=== PATIENT | female | born 1990 | race Caucasian/White ===

== ENCOUNTER 2017-07-21 22:26 | Outpatient (CLI) | payer OTHER | END 2017-07-22 00:30 | disposition home or self-care (01) | LOC: OBT 22:26 → L-D 22:28 | DX: O9A.212 Injury, poisoning and certain other consequences of external causes complicating pregnancy, second trimester (principal); Z3A.24 24 weeks gestation of pregnancy; V43.52XA Car driver injured in collision with other type car in traffic accident, initial encounter; Y92.410 Unspecified street and highway as the place of occurrence of the external cause | CPT/HCPCS: Z7500 ==

== ENCOUNTER 2017-08-31 21:34 | Inpatient (IN) | payer OTHER ==
[2017-08-31] MEDS: LACTATED RINGER'S 1,000 ML IV (23:21)
[2017-08-31] MEDS: TERBUTALINE 1 MG/ML INJ SC (23:25)
[2017-08-31 23:34] LABS: ADD MAN DIFF? NO
[2017-08-31 23:37] LABS: BASOPHILS % 0.2 % (0.0-2.0); EOSINOPHILS # 0.2 10^3/ul (0.0-0.5); HEMATOCRIT 33.9 % (37.0-47.0); HEMOGLOBIN 11.3 g/dl (12.0-16.0); LYMPHOCYTES # 2.5 10^3/ul (0.8-2.9); LYMPHOCYTES % 28.3 % (15.0-51.0); MEAN CORPUSCULAR HEMOGLOBIN 27.2 pg (29.0-33.0); MEAN CORPUSCULAR HGB CONC 33.3 g/dl (32.0-37.0); MEAN CORPUSCULAR VOLUME 81.5 fl (82.0-101.0); MEAN PLATELET VOLUME 10.2 fl (7.4-10.4); MONOCYTE # 0.6 10^3/ul (0.3-0.9); MONOCYTES % 6.8 % (0.0-11.0); NEUTROPHIL # 5.5 10^3/ul (1.6-7.5); NEUTROPHILS % 62.5 % (39.0-77.0); PLATELET COUNT 311 10^3/UL (140-415); RED BLOOD COUNT 4.16 10^6/ul (4.20-5.40); RED CELL DISTRIBUTION WIDTH 13.7 % (11.5-14.5)
[2017-08-31 23:37] LABS: WHITE BLOOD COUNT 8.9 10^3/ul (4.8-10.8)
[2017-08-31 23:56] LABS: ADD UMIC YES; UR ASCORBIC ACID NEGATIVE (NEGATIVE); UR BACTERIA FEW /HPF (NONE SEEN); UR BILIRUBIN (Dip) NEGATIVE (NEGATIVE); UR BLOOD (Dip) NEGATIVE (NEGATIVE); UR CLARITY SLIGHTLY CLOUDY (CLEAR); UR COLOR YELLOW (YELLOW); UR GLUCOSE (Dip) NEGATIVE (NEGATIVE); UR KETONES (Dip) NEGATIVE (NEGATIVE); UR LEUKOCYTE ESTERASE (Dip) TRACE Leu/ul (NEGATIVE); UR NITRITE (Dip) NEGATIVE (NEGATIVE); UR RBC 2 /HPF (0-5); UR SPECIFIC GRAVITY (Dip) 1.013 (1.003-1.030); UR SQUAMOUS EPITHELIAL CELL FEW /HPF (FEW); UR TOTAL PROTEIN (Dip) NEGATIVE (NEGATIVE); UR UROBILINOGEN (Dip) NEGATIVE (NEGATIVE); UR WBC 10 /HPF (0-5)
[2017-09-01 00:02] LABS: ALANINE AMINOTRANSFERASE 10 IU/L (13-69); ALBUMIN 3.7 g/dl (3.3-4.9); ALBUMIN/GLOBULIN RATIO 0.94; ALKALINE PHOSPHATASE 103 IU/L (42-121); ANION GAP 13 (8-16); ASPARTATE AMINO TRANSFERASE 12 IU/L (15-46); BLOOD UREA NITROGEN 6 mg/dl (7-20); CALCIUM 9.1 mg/dl (8.4-10.2); CARBON DIOXIDE 23 mmol/L (21-31); CHLORIDE 107 mmol/L (97-110); CREATININE 0.41 mg/dl (0.44-1.00); GLUCOSE 109 mg/dl (70-220); POTASSIUM 3.9 mmol/L (3.5-5.1); SODIUM 139 mmol/L (135-144); TOTAL PROTEIN 7.6 g/dl (6.1-8.1)
[2017-09-01] MEDS: LACTATED RINGER'S 1,000 ML IV ×2 (01:57→09:12)
[2017-09-01] MEDS: NIFEdipine 10 MG CAP PO ×3 (02:00→09:13)
[2017-09-01] MEDS: BETAMET NA PHOS/AC(6 MG/ML) 5ML INJ IM (02:01)
[2017-09-01] MEDS: PRENATAL VITAMIN PO (09:12)
== END 2017-09-01 13:45 | disposition home or self-care (01) | DRG 780 ==
LOC: OBT 21:34 → L-D 21:36
DX: O47.03 False labor before 37 completed weeks of gestation, third trimester (principal); Z3A.30 30 weeks gestation of pregnancy
CPT/HCPCS: 36415; 76817; 76818; 80053; 81001; 85025; 96360; 96372

== ENCOUNTER 2017-09-02 09:57 | Outpatient (CLI) | payer OTHER ==
[2017-09-02] MEDS: BETAMET NA PHOS/AC(6 MG/ML) 5ML INJ IM (10:22)
== END 2017-09-02 12:25 | disposition home or self-care (01) ==
LOC: OBT 09:57 → L-D 09:58 → OBT 12:25
DX: O62.9 Abnormality of forces of labor, unspecified (principal); Z3A.30 30 weeks gestation of pregnancy
CPT/HCPCS: 76817; 76818

== ENCOUNTER 2017-09-18 11:18 | Outpatient (CLI) | payer OTHER ==
[2017-09-18] MEDS: LACTATED RINGER'S 1,000 ML IV* (13:01)
[2017-09-18] MEDS: TERBUTALINE 1 MG/ML INJ SC (13:04)
== END 2017-09-18 15:30 | disposition home or self-care (01) ==
LOC: OBT 11:18 → L-D 11:18 → OBT 15:30
DX: O62.9 Abnormality of forces of labor, unspecified (principal); Z3A.32 32 weeks gestation of pregnancy
CPT/HCPCS: 36415; 76817; 76818; 96360; 96361; 96372

== ENCOUNTER 2017-09-28 13:39 | Outpatient (CLI) | payer OTHER | END 2017-09-28 16:00 | disposition home or self-care (01) | LOC: OBT 13:39 → L-D 13:40 → OBT 16:00 | DX: O28.0 Abnormal hematological finding on antenatal screening of mother (principal); Z3A.33 33 weeks gestation of pregnancy | CPT/HCPCS: 76817 ==

== ENCOUNTER 2017-10-07 11:58 | Outpatient (CLI) | payer OTHER ==
[2017-10-07 13:37] LABS: ADD MAN DIFF? NO
[2017-10-07 13:39] LABS: BASOPHILS % 0.2 % (0.0-2.0); EOSINOPHILS # 0.1 10^3/ul (0.0-0.5); EOSINOPHILS % 0.8 % (0.0-7.0); HEMATOCRIT 34.7 % (37.0-47.0); HEMOGLOBIN 11.6 g/dl (12.0-16.0); LYMPHOCYTES # 2.4 10^3/ul (0.8-2.9); LYMPHOCYTES % 26.6 % (15.0-51.0); MEAN CORPUSCULAR HEMOGLOBIN 27.8 pg (29.0-33.0); MEAN CORPUSCULAR HGB CONC 33.4 g/dl (32.0-37.0); MEAN PLATELET VOLUME 10.7 fl (7.4-10.4); MONOCYTE # 0.6 10^3/ul (0.3-0.9); MONOCYTES % 6.7 % (0.0-11.0); NEUTROPHIL # 5.8 10^3/ul (1.6-7.5); NEUTROPHILS % 65.4 % (39.0-77.0); PLATELET COUNT 272 10^3/UL (140-415); RED BLOOD COUNT 4.18 10^6/ul (4.20-5.40); RED CELL DISTRIBUTION WIDTH 14.6 % (11.5-14.5)
[2017-10-07 13:39] LABS: WHITE BLOOD COUNT 8.8 10^3/ul (4.8-10.8)
[2017-10-07 14:04] LABS: ALANINE AMINOTRANSFERASE 11 IU/L (13-69); ALBUMIN 3.1 g/dl (3.3-4.9); ALBUMIN/GLOBULIN RATIO 0.86; ALKALINE PHOSPHATASE 124 IU/L (42-121); ANION GAP 9 (8-16); ASPARTATE AMINO TRANSFERASE 10 IU/L (15-46); BILIRUBIN,INDIRECT 0.1 mg/dl (0-1.1); BILIRUBIN,TOTAL 0.1 mg/dl (0.2-1.3); BLOOD UREA NITROGEN 8 mg/dl (7-20); CALCIUM 8.8 mg/dl (8.4-10.2); CARBON DIOXIDE 23 mmol/L (21-31); CHLORIDE 109 mmol/L (97-110); CREATININE 0.47 mg/dl (0.44-1.00); GLUCOSE 83 mg/dl (70-220); POTASSIUM 4.1 mmol/L (3.5-5.1); SODIUM 137 mmol/L (135-144); TOTAL PROTEIN 6.7 g/dl (6.1-8.1)
== END 2017-10-07 13:20 | disposition home or self-care (01) ==
LOC: OBT 11:58 → L-D 11:58 → OBT 13:20
DX: O60.03 Preterm labor without delivery, third trimester (principal); Z3A.35 35 weeks gestation of pregnancy
CPT/HCPCS: 80053; 85025; 96372

== ENCOUNTER 2017-10-14 22:25 | Inpatient (IN) | payer OTHER ==
[2017-10-14] MEDS: TERBUTALINE 1 MG/ML INJ SC (23:37)
[2017-10-14] MEDS: LACTATED RINGER'S 1,000 ML IV (23:38)
[2017-10-15] MEDS: LACTATED RINGER'S 1,000 ML IV ×6 (00:52→23:43)
[2017-10-15] MEDS: TERBUTALINE 1 MG/ML INJ SC ×5 (00:52→13:37)
[2017-10-15] MEDS ORDERED: DOCUSATE SODIUM 100 MG CAP PO (02:30)
[2017-10-15] MEDS: NIFEdipine 10 MG CAP PO ×4 (02:30→12:18)
[2017-10-15 03:29] LABS: ADD MAN DIFF? NO
[2017-10-15 03:35] LABS: WHITE BLOOD COUNT 10.4 10^3/ul (4.8-10.8)
[2017-10-15 03:35] LABS: BASOPHILS % 0.2 % (0.0-2.0); EOSINOPHILS % 0.2 % (0.0-7.0); HEMATOCRIT 31.2 % (37.0-47.0); HEMOGLOBIN 10.4 g/dl (12.0-16.0); LYMPHOCYTES # 2.5 10^3/ul (0.8-2.9); LYMPHOCYTES % 23.7 % (15.0-51.0); MEAN CORPUSCULAR HGB CONC 33.3 g/dl (32.0-37.0); MEAN CORPUSCULAR VOLUME 83.9 fl (82.0-101.0); MEAN PLATELET VOLUME 10.9 fl (7.4-10.4); MONOCYTE # 0.8 10^3/ul (0.3-0.9); MONOCYTES % 7.3 % (0.0-11.0); NEUTROPHIL # 7.1 10^3/ul (1.6-7.5); NEUTROPHILS % 68.3 % (39.0-77.0); PLATELET COUNT 242 10^3/UL (140-415); RED BLOOD COUNT 3.72 10^6/ul (4.20-5.40)
[2017-10-15 04:27] LABS: INR 1.04; PROTIME 13.7 Sec (11.9-14.9); PT RATIO 1.1
[2017-10-15 04:28] LABS: PARTIAL THROMBOPLASTIN TIME 28.6 Sec (25.0-35.0)
[2017-10-15 04:30] LABS: HEPATITIS B SURFACE ANTIGEN NEGATIVE (NEGATIVE)
[2017-10-15] MEDS ORDERED: PRENATAL VITAMIN PO (09:00)
[2017-10-15] MEDS ORDERED: FERROUS SULFATE (EC) 325 MG TAB PO (09:00)
[2017-10-15] MEDS ORDERED: BETAMET NA PHOS/AC(6 MG/ML) 5ML INJ IM (12:07)
[2017-10-15] MEDS: BETAMET NA PHOS/AC(6 MG/ML) 5ML INJ IM (12:42)
[2017-10-15] MEDS ORDERED: MISOPROSTOL 200 MCG TAB PR ×2 (15:30→20:30)
[2017-10-15] MEDS ORDERED: OXYTOCIN 30 UNITS/LR 500 ML IV ×3 (15:30→20:30)
[2017-10-15] MEDS ORDERED: METHYLERGONOVINE 0.2 MG INJ IM ×2 (15:30→20:30)
[2017-10-15] MEDS ORDERED: CARBOPROST 250 MCG INJ IM ×2 (15:30→20:30)
[2017-10-15] MEDS ORDERED: METOCLOPRAMIDE 10 MG INJ (16:09)
[2017-10-15] MEDS ORDERED: ONDANSETRON 4 MG INJ (16:09)
[2017-10-15] MEDS ORDERED: EPHEDrine SULFATE 50 MG/5 ML SYG (16:09)
[2017-10-15] MEDS ORDERED: OXYTOCIN 10 UNIT INJ ×2 (16:09→16:50)
[2017-10-15] MEDS ORDERED: morphine SULFATE/PF (10 MG/10 ML) INJ (16:10)
[2017-10-15] MEDS ORDERED: BUPIVACAINE 0.75%/DEXT (SPINAL) 2 ML INJ (16:11)
[2017-10-15] MEDS: CEFAZOLIN 2 GM/50 ML (PMX) 50 ML IV ×2 (18:21→23:54)
[2017-10-15] MEDS: OXYTOCIN 30 UNITS/LR 500 ML IV (18:30)
[2017-10-15] MEDS ORDERED: morphine SULFATE/PF (10 MG/10 ML) INJ SPINAL (19:00)
[2017-10-15] MEDS ORDERED: morphine 2 MG INJ IV ×2 (19:00)
[2017-10-15] MEDS ORDERED: DIPHENHYDRAMINE 50 MG INJ IV (19:00)
[2017-10-15] MEDS ORDERED: ONDANSETRON 4 MG INJ IV (19:00)
[2017-10-15] MEDS ORDERED: KETOROLAC 30 MG INJ IV (19:00)
[2017-10-15] MEDS ORDERED: EPHEDrine SULFATE 50 MG/5 ML SYG IV (19:00)
[2017-10-15] MEDS ORDERED: NALOXONE (0.4 MG/ML) INJ IV (19:00)
[2017-10-15] MEDS ORDERED: NA PHOSPHATE/BIPHOS 133 ML ENEMA PR (20:30)
[2017-10-15] MEDS ORDERED: LANOLIN 7 GM TUBE TOP (20:30)
[2017-10-15] MEDS ORDERED: HYDROCODONE/APAP (5/325) TAB PO (20:30)
[2017-10-15] MEDS: SENNA/DOCUSATE NA (8.6MG/50MG) TAB PO (21:00)
[2017-10-15] MEDS: IBUPROFEN 800 MG TAB PO (22:00)
[2017-10-15 22:12] LABS: RAPID PLASMA REAGIN NONREACTIVE (NR)
[2017-10-16] MEDS: IBUPROFEN 800 MG TAB PO ×3 (07:46→22:29)
[2017-10-16] MEDS: LACTATED RINGER'S 1,000 ML IV (08:08)
[2017-10-16] MEDS: SENNA/DOCUSATE NA (8.6MG/50MG) TAB PO ×2 (08:09→22:29)
[2017-10-16] MEDS: CLINDAMYCIN 300 MG CAP PO ×4 (08:09→17:44)
[2017-10-16] MEDS: CEFAZOLIN 2 GM/50 ML (PMX) 50 ML IV ×2 (08:09→15:31)
[2017-10-16 10:03] LABS: ADD MAN DIFF? NO
[2017-10-16 10:07] LABS: WHITE BLOOD COUNT 15.7 10^3/ul (4.8-10.8)
[2017-10-16 10:07] LABS: BASOPHILS % 0.1 % (0.0-2.0); HEMATOCRIT 28.6 % (37.0-47.0); HEMOGLOBIN 9.4 g/dl (12.0-16.0); LYMPHOCYTES # 1.6 10^3/ul (0.8-2.9); LYMPHOCYTES % 10.3 % (15.0-51.0); MEAN CORPUSCULAR HEMOGLOBIN 27.8 pg (29.0-33.0); MEAN CORPUSCULAR HGB CONC 32.9 g/dl (32.0-37.0); MEAN CORPUSCULAR VOLUME 84.6 fl (82.0-101.0); MEAN PLATELET VOLUME 10.9 fl (7.4-10.4); MONOCYTES % 6.2 % (0.0-11.0); PLATELET COUNT 233 10^3/UL (140-415); RED BLOOD COUNT 3.38 10^6/ul (4.20-5.40); RED CELL DISTRIBUTION WIDTH 15.3 % (11.5-14.5)
[2017-10-16] MEDS: OXYCODONE/ACETAMINOPHEN (5/325) TAB PO (17:05)
[2017-10-16] MEDS: BISACODYL 10 MG SUPP PR (17:45)
[2017-10-17] MEDS: CLINDAMYCIN 300 MG CAP PO ×4 (00:13→17:56)
[2017-10-17] MEDS: IBUPROFEN 800 MG TAB PO ×3 (06:02→21:54)
[2017-10-17] MEDS: SENNA/DOCUSATE NA (8.6MG/50MG) TAB PO ×2 (09:23→21:54)
[2017-10-17 09:31] LABS: ADD MAN DIFF? NO
[2017-10-17 09:36] LABS: BASOPHILS % 0.1 % (0.0-2.0); EOSINOPHILS # 0.1 10^3/ul (0.0-0.5); EOSINOPHILS % 0.4 % (0.0-7.0); HEMATOCRIT 34.5 % (37.0-47.0); HEMOGLOBIN 11.2 g/dl (12.0-16.0); LYMPHOCYTES # 2.3 10^3/ul (0.8-2.9); LYMPHOCYTES % 14.3 % (15.0-51.0); MEAN CORPUSCULAR HEMOGLOBIN 28.1 pg (29.0-33.0); MEAN CORPUSCULAR HGB CONC 32.5 g/dl (32.0-37.0); MEAN CORPUSCULAR VOLUME 86.7 fl (82.0-101.0); MEAN PLATELET VOLUME 10.3 fl (7.4-10.4); MONOCYTE # 0.7 10^3/ul (0.3-0.9); MONOCYTES % 4.4 % (0.0-11.0); NEUTROPHIL # 13.2 10^3/ul (1.6-7.5); NEUTROPHILS % 80.3 % (39.0-77.0); PLATELET COUNT 262 10^3/UL (140-415); RED BLOOD COUNT 3.98 10^6/ul (4.20-5.40); RED CELL DISTRIBUTION WIDTH 15.8 % (11.5-14.5)
[2017-10-17 09:36] LABS: WHITE BLOOD COUNT 16.4 10^3/ul (4.8-10.8)
[2017-10-17] MEDS: OXYCODONE/ACETAMINOPHEN (5/325) TAB PO ×2 (11:35→18:43)
[2017-10-17] MEDS: CIPROFLOXACIN 500 MG TAB PO (19:12)
[2017-10-18] MEDS: OXYCODONE/ACETAMINOPHEN (5/325) TAB PO ×2 (00:15→11:39)
[2017-10-18] MEDS: CLINDAMYCIN 300 MG CAP PO ×4 (00:15→17:46)
[2017-10-18] MEDS: IBUPROFEN 800 MG TAB PO ×2 (05:40→14:15)
[2017-10-18] MEDS: CIPROFLOXACIN 500 MG TAB PO ×2 (05:40→17:46)
[2017-10-18] MEDS: MEASLES,MUMPS,RUBELLA VACCINE INJ SC* (09:00)
[2017-10-18] MEDS: SENNA/DOCUSATE NA (8.6MG/50MG) TAB PO (09:11)
[2017-10-18 09:45] LABS: ADD MAN DIFF? NO
[2017-10-18 09:51] LABS: WHITE BLOOD COUNT 12.6 10^3/ul (4.8-10.8)
[2017-10-18 09:51] LABS: BASOPHILS % 0.2 % (0.0-2.0); EOSINOPHILS # 0.1 10^3/ul (0.0-0.5); EOSINOPHILS % 0.9 % (0.0-7.0); HEMATOCRIT 30.9 % (37.0-47.0); HEMOGLOBIN 9.8 g/dl (12.0-16.0); LYMPHOCYTES # 2.3 10^3/ul (0.8-2.9); LYMPHOCYTES % 18.3 % (15.0-51.0); MEAN CORPUSCULAR HEMOGLOBIN 27.4 pg (29.0-33.0); MEAN CORPUSCULAR HGB CONC 31.7 g/dl (32.0-37.0); MEAN CORPUSCULAR VOLUME 86.3 fl (82.0-101.0); MEAN PLATELET VOLUME 10.1 fl (7.4-10.4); MONOCYTE # 0.5 10^3/ul (0.3-0.9); MONOCYTES % 4.2 % (0.0-11.0); NEUTROPHIL # 9.6 10^3/ul (1.6-7.5); NEUTROPHILS % 75.9 % (39.0-77.0); PLATELET COUNT 248 10^3/UL (140-415); RED BLOOD COUNT 3.58 10^6/ul (4.20-5.40); RED CELL DISTRIBUTION WIDTH 15.7 % (11.5-14.5)
[2017-10-18] MEDS: DIPHTH/TET/ACEL PERTUSS (ADULT) 0.5 ML VIAL IM* (10:00)
== END 2017-10-18 18:05 | disposition home or self-care (01) | DRG 766 ==
LOC: OBT 22:25 → L-D 22:27 → PP1 10-15 20:14
PROVIDERS: Obstetrics & Gynecology
PROC: 10D00Z1 Extraction of Products of Conception, Low, Open Approach (ICD-10-PCS; principal; 2017-10-15 15:30)
PROC: 0UL70ZZ Occlusion of Bilateral Fallopian Tubes, Open Approach (ICD-10-PCS; 2017-10-15 15:30)
PROC: 3E033VJ Introduction of Other Hormone into Peripheral Vein, Percutaneous Approach (ICD-10-PCS; 2017-10-15 15:30)
DX: O60.14X0 Preterm labor third trimester with preterm delivery third trimester, not applicable or unspecified (principal); O34.211 Maternal care for low transverse scar from previous cesarean delivery; Z30.2 Encounter for sterilization; Z3A.36 36 weeks gestation of pregnancy; Z37.0 Single live birth
CPT/HCPCS: 36415; 76818; 85025; 85610; 85730; 86592; 86870; 86885; 86900; 86901; 87340; 88302; 94760; 96360; 96361; 96372; 99464